=== PATIENT | female | born 1970 | race Caucasian/White ===

== ENCOUNTER 2019-02-13 12:30 | Emergency (ER) | payer OTHER ==
[~2019-02-13] VITALS: Ht 165.1 cm; Wt 127.0 kg
--- OUTSIDE RECORDS SUMMARY | 2019-02-13 12:32 | XMS REPORT ---
Author Author [facility] Address Unknown Phone Unavailable Care Team Providers Care Trade Recruiter Name Role Phone Unavailable Unavailable Problems This patient has no known problems. Allergies, Adverse Reactions, Alerts This patient has no known allergies or adverse reactions. Medications This patient has no known medications. Results Test Description Test Time Test Comments Text Results Atomic Results Result Comments MM, DIGITAL, MAMMO, SCREENING, BILATERAL INCLUDING CAD 2019-01-19 13:26:00 Diagnostic workup per radiologist?->YesReason for Exam:->z12.31 #[id number] - MM, DIGITAL, MAMMO, SCREENING, BILATERAL INCLUDING CADBILATERAL DIGITAL SCREENING MAMMOGRAM WITH CAD: 01/19/2019Comparison is made to exams dated: 01/05/2018 mammogram, 01/03/2017 mammogram, 12/31/2016 mammogram, and 11/20/2015 mammogram - [facility]. The tissue of both breasts is predominantly fatty. Current study was also evaluated with a Computer Aided Detection (CAD) system. Benign appearing calcifications are present in both breasts. Examination indicates an intramammary lymph node in the right breast. No significant masses, calcifications, or other findings are seen in either breast. IMPRESSION: BENIGNThere is no mammographic evidence of malignancy. A 1 year screening mammogram is recommended. Herber Ireland M.D. pth/penrad:01/19/2019 13:26:04 Normal Exam Mammogram BI-RADS: 2 Benign G0202 , DIGITAL, MAMMO, SCREENING, BILATERAL INCLUDING CAD 2018-01-05 10:37:00 Reason for Exam:->BREAST CANCER SCREENING #[id number] - MM, DIGITAL, MAMMO, SCREENING, BILATERAL INCLUDING CADBILATERAL DIGITAL SCREENING MAMMOGRAM WITH CAD: 01/05/2018Comparison is made to exams dated: 06/27/2017 mammogram, 017 mammogram, and 12/31/2016 mammogram - [facility]. The tissue of both breasts is predominantly fatty. Current study was also evaluated with a Computer Aided Detection (CAD) system. Benign appearing calcifications are present in both breasts. Examination indicates an intramammary lymph node in the right breast. No significant masses, calcifications, or other findings are seen in either breast. IMPRESSION: BENIGNThere is no mammographic evidence of malignancy. A 1 year screening mammogram is recommended. Herber Ireland M.D. pth/penrad: 10:37:43 Normal Exam Mammogram BI-RADS: 2 Benign G0202 , DIGITAL MAMMO, DIAGNOSTIC, RIGHT INCLUDING CAD 2017-06-27 15:10:00 Reason for Exam:->r92.1 #[id number] - MM, DIGITAL MAMMO, DIAGNOSTIC, RIGHT INCLUDING CADUNILATERAL RIGHT DIGITAL DIAGNOSTIC MAMMOGRAM WITH CAD: 06/27/2017Comparison is made to exams dated: 01/03/2017 mammogram, 12/31/2016 mammogram, and 11/20/2015 mammogram - [facility]. The tissue of the right breast is predominantly fatty. Current study was also evaluated with a Computer Aided Detection (CAD) system. Benign appearing fat necrosis calcifications are present in the right breast. Examination indicates an intramammary lymph node in the right breast. No significant other findings are seen in the breast. IMPRESSION: BENIGNThere is no mammographic evidence of malignancy. Return to annual mammogram screening schedule is recommended. Herber Ireland M.D. pth/:06/27/2017 15:10:21 Normal Exam Mammogram BI-RADS: 2 Benign [id number] , U/S, BREAST, UNILATERAL, RIGHT 2017-01-07 16:04:00 Reason for Exam:->breast calcifications on mammogram #[id number] - MM, U/S, BREAST, UNILATERAL, RIGHTULTRASOUND OF RIGHT BREAST: 01/07/2017Comparison is made to exams dated: 12/31/2016 mammogram, 01/03/2017 mammogram, and 11/20/2015 mammogram - [facility]. Color flow and real-time ultrasound of the right breast were performed. Horton scale images of the real- time examination were reviewed. Ultrasound of all four quadrants and the retroareolar breast was performed. The 5 mm area of grouped coarse heterogeneous and punctate calcifications in the right superficial breast at 12 o'clock middle depth was shown as a hyperechoic region consistent with fat necrosis. IMPRESSION: BENIGN - FOLLOW-UP RECOMMENDEDThe findings, options for management including biopsy have been discussed with the patient. She agreed with short-term imaging followup. A follow-up mammogram in 6 months is recommended to demonstrate stability. Herber Ireland M.D. pth/:01/07/2017 16:04:06 Production Technologist: Ashutosh Chow, [facility] Ultrasound BI-RADS: 2 Benign [id number] , DIGITAL MAMMO, DIAGNOSTIC, RIGHT INCLUDING CAD 2017-01-03 13:08:00 Reason for Exam:->Breast claficiation seen on mammogram #[id number] - MM, DIGITAL MAMMO, DIAGNOSTIC, RIGHT INCLUDING CADUNILATERAL RIGHT DIGITAL DIAGNOSTIC MAMMOGRAM WITH CAD: 01/03/2017CLINICAL: Patient returns for additional views of calcifications in the right breast. Comparison is made to exams dated: 12/31/2016 mammogram and 11/20/2015 mammogram - [facility]. The tissue of the right breast is predominantly fatty. Current study was also evaluated with a Computer Aided Detection (CAD) system. Additional views confirm a 5 mm area of grouped coarse heterogeneous and punctate calcifications in the right breast at 12 o'clock middle depth. No other significant masses or calcifications are seen in the breast. IMPRESSION: SUSPICIOUS OF MALIGNANCYThe 5 mm area of grouped coarse heterogeneous punctate calcifications in the right breast are at an intermediate suspicion for malignancy. A stereotactic biopsy is recommended. I discussed the results and recommendation(s) with Ms. West. Our staff will assist her in the scheduling of the biopsy. Sanjay Esqueda M.D. ds/:01/03/2017 13:08:35 Biopsy Required Mammogram BI-RADS: 4b Suspicious abnormality - intermediate suspicion of malignancy [id number] , DIGITAL, MAMMO, SCREENING, BILATERAL INCLUDING CAD 2016-12-31 11:42:00 Reason for Exam:->breast cancer screening #[id number] - MM, DIGITAL, MAMMO, SCREENING, BILATERAL INCLUDING CADBILATERAL DIGITAL SCREENING MAMMOGRAM WITH CAD: 12/31/2016Comparison is made to exams dated: 11/20/2015 mammogram, 08/15/2014 mammogram, 04/15/2013 mammogram, 12/10/2011 mammogram, and 08/29/2010 mammogram - [facility]. The tissue of both breasts is predominantly fatty. Current study was also evaluated with a Computer Aided Detection (CAD) system. There is a 5 mm area of clustered coarse calcifications in the right breast at 12 o'clock middle depth. No other significant masses, calcifications, or other findings are seen in either breast. IMPRESSION: INCOMPLETE: NEEDS ADDITIONAL IMAGING EVALUATIONThe 5 mm area of clustered coarse calcifications in the right breast are indeterminate. Spot magnification and lateral views are recommended. Marcela Arnold M.D. mc/:12/31/2016 11:42:17 Addional Imaging Needed Mammogram BI-RADS: 0 Indeterminate G0202
[2019-02-13] MEDS ORDERED: HYDROMORPHONE 1MG/1ML INJ IM ONE (14:00)
--- NOTE | 2019-02-13 14:47 | Diagnostic Imaging Report ---
EXAM: Pelvic radiographs-2 views; lumbar spine radiographs-5 views; right knee radiographs-3 views INDICATION: Fall. COMPARISON: None FINDINGS: BONES: No acute malalignment. Dextroconvex curvature of the upper lumbar spine. No acute displaced fractures. Vertebral body heights are preserved. DISCS: Mild multilevel degenerative disc changes. JOINTS: The facet joints and sacroiliac joints are unremarkable. Mild joint space narrowing within the medial and patellofemoral compartments of the knee. SOFT TISSUES: Small suprapatellar joint effusion. IMPRESSION: No acute radiographic abnormality in the pelvis or lumbar spine. Suprapatellar joint effusion without evidence of acute fracture or malalignment. Signed by: Dr. Lena Solis MD on 02/13/2019 2:44 PM
--- NOTE | 2019-02-13 14:50 | Diagnostic Imaging Report ---
Exam: Right wrist radiographs-3 views History Fall. Comparison: None. Findings/Impression: There is an acute, comminuted, mildly displaced, intra-articular fracture of the distal radius. There is dorsal angulation. There is surrounding soft tissue edema and a wrist joint effusion. Carpal alignment is grossly maintained, although evaluation is somewhat limited secondary to positioning. Signed by: Dr. Lena Solis MD on 02/13/2019 2:47 PM
[2019-02-13] MEDS ORDERED: HYDROCODONE/APAP 7.5MG-325MG 1 EA TAB PO PRN (16:00)
--- NOTE | 2019-02-13 16:06 | NUR ---
pt given knee immobilizer and crutches and instructions on use of both
[2019-02-13 16:07] VITALS: BP 138/67
--- NOTE | 2019-02-13 16:40 | Diagnostic Imaging Report ---
Exam: Right wrist radiographs-3 views History Fall. Comparison: Right wrist radiographs 02/13/2019. Findings/Impression: Status post interval casting, which obscures bony detail. There has been interval slight increase in displacement of previously described intra-articular distal radial fracture. Signed by: Dr. Lena Solis MD on 02/13/2019 4:37 PM
[2019-02-19] MEDS ORDERED: MULTIVITAMINS1 EAC7 PO (11:02)
[2019-02-19] MEDS ORDERED: ATORVASTATIN CA10 MG PO (11:03)
[2019-02-19] MEDS ORDERED: LOSARTAN POTAS100 MG PO (11:03)
[2019-02-19] MEDS ORDERED: VITAMIN D PO (11:04)
[2019-02-22] MEDS ORDERED: TYLENOL WITH C1 EACH PO (06:30)
== END 2019-02-13 16:29 | disposition home or self-care (01) ==
LOC: ER 12:30
DX: S52.351A Displaced comminuted fracture of shaft of radius, right arm, initial encounter for closed fracture (principal); M25.561 Pain in right knee; W11.XXXA Fall on and from ladder, initial encounter
CPT/HCPCS: 29125; 72110; 72170; 73100; 73110; 73562; 93005; 99284; J1170

== ENCOUNTER → 2019-02-22 | Day surgery (SDC) | payer OTHER ==
[~2019-02-22] MED LIST: ACETAMINOPHEN 1000 MG/100 ML IV ONE; ACETAMINOPHEN/CODEINE 300MG - 30MG TAB ONE; ATORVASTATIN CA10 MG PO; BUPIVACAINE HCL 0.5% INJ 30 ML VIAL INJ ONE; CEFAZOLIN SOD 1 GM/NS 50ML 50 ML IV ONE; DEXAMETHASONE SOD PHOS INJ 4 MG/ML VIAL ONE; FENTANYL CITRATE/PF 100MCG/2 ML INJ ONE; HYDROMORPHONE 1MG/1ML INJ ONE; KETOROLAC TROMETHAMINE 30 MG/ML VIAL ONE; LIDOCAINE HCL 2% LOCAL INJ 5 ML SDV VIAL INJ ONE; LOSARTAN POTAS100 MG PO; MIDAZOLAM HCL 2 MG/2 ML VIAL ONE; MORPHINE SULFATE INJ 4 MG/ML INJ 1ML ONE; MULTIVITAMINS1 EAC7 PO; ONDANSETRON HCL INJ 2MG/ML 2ML 2 MG/ML VIAL ONE; PROPOFOL IV EMULSION 10 MG/ML 20 ML VIAL ONE; SEVOFLURANE INHAL SOLN 250 ML PEN BTL ONE; TYLENOL WITH C1 EACH PO; VITAMIN D PO
[2019-02-22 09:35] VITALS: BP 133/63
--- NOTE | 2019-02-22 14:10 | Operative Report ---
DATE OF PROCEDURE: 02/22/2019 SURGEON: Balta Vitale MD MOLDING UTILITY WORKER: Steve Alexandre, certified PA. PREOPERATIVE DIAGNOSIS: Comminuted intra-articular fracture of the lower end of the right radius. POSTOPERATIVE DIAGNOSIS: Comminuted intra-articular fracture of the lower end of the right radius. PROCEDURE: Open reduction and internal fixation of comminuted intra-articular fracture of the lower right radius. INDICATIONS: The patient is a 48-year-old lady, who fell and sustained an intra-articular displaced fracture of her right distal radius. The findings and options have been discussed. We recommend open reduction with internal fixation. The risks and benefits have been explained. The added challenges due to her body mass index of 45 have been explained. She states she understands and wishes to proceed. PROCEDURE IN DETAIL: The patient was brought to the operating room and placed under general anesthetic. Her right upper extremity was prepped and draped in a sterile manner. A preoperative time-out was performed. The extremity was exsanguinated and a proximal tourniquet was inflated to 250 mmHg. A volar approach to the right radius was performed. Some initial challenge was encountered. Finding the flexor carpi radialis tendon through the abundant adipose tissue. We initiated the deep approach through the floor of the flexor carpi radialis tendon sheath. Care was taken to avoid injury to the neurovascular bundle. The muscle was elevated off the distal radius. The fracture was primarily on the dorsal aspect. Intraoperative C-arm image intensifier was used to assist in obtaining a reduction. The dorsal fragment remained somewhat displaced. A K-wire was used to joystick the dorsal fragment into improved position. There was also a punch lesion of the lunate fossa. The K-wire was also used to assist in reducing this to the articular surface. A [employer] volar locking plate was then placed onto the distal radius. This was locked with a combination of compression and locking screws. Intraoperative x-rays showed surprisingly good improvement in the reduction of the articular surface. All of the final screws were placed. Final x-rays showed acceptable reduction and positioning of the hardware. The wound was thoroughly irrigated. The wound was closed with subcutaneous Vicryl and nylon stitches. 6 mL of 0.5% Marcaine without epinephrine were injected around the incision. The tourniquet was briefly deflated to make sure that there was no significant bleeding. There was some minor oozing. The tourniquet was reinflated to allow closure. A sterile dressing and a sugar-tong splint were applied. Estimated blood loss was 10 mL. At the end of the procedure, all needle and sponge counts were correct. Balta Vitale MD DR/ROXY /[id number]
== END | disposition home or self-care (01) ==
LOC: OR 05:26
PROVIDERS: ATTEND Specialist
DX: S52.571A Other intraarticular fracture of lower end of right radius, initial encounter for closed fracture (principal); S83.91XA Sprain of unspecified site of right knee, initial encounter; M17.11 Unilateral primary osteoarthritis, right knee; E66.01 Morbid (severe) obesity due to excess calories; I10 Essential (primary) hypertension; W19.XXXA Unspecified fall, initial encounter; Y93.89 Activity, other specified; Y92.219 Unspecified school as the place of occurrence of the external cause; Z68.41 Body mass index [BMI] 40.0-44.9, adult
CPT/HCPCS: 25608; C1713 ×4; J0131; J0690; J1100; J1170; J1885; J2001; J2250; J2270; J2405; J2704; J3010; 76000